=== PATIENT | male | born 1995 | race Caucasian/White ===

== ENCOUNTER 2017-09-01 02:05 | Emergency (ER) | payer SELFPAY ==
[2017-09-01 02:10] VITALS: BP 123/78
[2017-09-01] MEDS: Sodium Chloride 0.9% 10 ML Syringe FLUSH PRN (02:21)
--- NOTE | 2017-09-01 02:22 | EDM.PDOC ---
ED HPI GENERAL MEDICAL PROBLEM - General Chief Complaint: Headache Stated Complaint: headache Time Seen by Provider: 09/01/17 02:11 Source of Information: Reports: Patient, Family, RN, RN Notes Reviewed History Limitations: Reports: No Limitations - History of Present Illness INITIAL COMMENTS - FREE TEXT/NARRATIVE: Patient presents to the ED at [facility] for a headache. Patient states the headache woke him up in his sleep. He states when he gets headache he usually take Tylenol or Advil, which seems to help. He complains of photophobia. He is not aware of any triggers. He did to 3, 325 mg Tylenol tonight without any relief of his symptoms. He states he is nauseated and did vomit once prior to presentation. He denies any other neurological deficits. No other symptoms. Onset: Sudden Onset Date: 08/31/17 Duration: Waxing/Waning Location: Reports: Head Quality: Reports: Throbbing Severity: Moderate Improves with: Reports: None Worsens with: Reports: Movement Context: Denies: Activity, Lifting, Sick Contact, Trauma Associated Symptoms: Reports: Nausea/Vomiting Treatments [employer]: Reports: Acetaminophen Headache Pain Score (Numeric/FACES): 9 - Related Data Allergies Allergy/AdvReac Type Severity Reaction Status Date / Time No Known Allergies Allergy Verified 09/01/17 02:06 Home Meds: Home Meds . [No Known Home Meds] 09/01/17 [History] Past Medical History - Past Health History Medical/Surgical History: Denies Medical/Surgical History Musculoskeletal History: Reports: Back Pain, Chronic Neurological History: Reports: Migraines - Past Surgical History Musculoskeletal Surgical History: Reports: Other (See Below) Other Musculoskeletal Surgeries/Procedures:: back surgery Social & Family History - Family History Family Medical History: Noncontributory - Tobacco Use Smoking Status *Q: Current Every Day Smoker Years of Tobacco use: 5 Packs/Tins Daily: 0.5 ED ROS GENERAL - Review of Systems Review Of Systems: See Below Constitutional: Denies: Fever, Chills, Weakness HEENT: Reports: No Symptoms Respiratory: Denies: Shortness of Breath, Cough Cardiovascular: Denies: Chest Pain, Palpitations GI/Abdominal: Reports: Nausea, Vomiting. Denies: Abdominal Pain Skin: Reports: No Symptoms Neurological: Reports: Headache. Denies: Dizziness - Physical Exam Exam: See Below Exam Limited By: No Limitations General Appearance: Alert, No Apparent Distress Eye Exam: Bilateral Eye: EOMI, Normal Inspection, PERRL Ears: Normal External Exam, Normal Canal, Normal TMs Head Exam: Atraumatic, Normocephalic Neck: Supple Respiratory/Chest: No Respiratory Distress, Lungs Clear, Normal Breath Sounds Cardiovascular: Normal Peripheral Pulses, Regular Rate, Rhythm GI/Abdominal: Normal Bowel Sounds, Soft, Non-Tender Neuro Exam (Abbreviated): Alert, Oriented Skin Exam: Warm, Dry, Intact, Normal Color, No Rash Course - Vital Signs Last Recorded V/S: Last Vital Signs Temp 36.0 C 09/01/17 02:07 Pulse 71 09/01/17 02:07 Resp 14 09/01/17 02:07 BP 123/78 09/01/17 02:07 Pulse Ox 99 09/01/17 02:07 - Orders/Labs/Meds Orders: Active Orders 24 hr Category Date Time Status Sodium Chloride 0.9% [Normal Saline] 1,000 ml Med 09/01/17 02:15 Active IV ONETIME Sodium Chloride 0.9% [Saline Flush] Med 09/01/17 02:15 Active 10 ml FLUSH ASDIRECTED PRN chlorproMAZINE [Thorazine] 50 mg Med 09/01/17 02:17 Active Sodium Chloride 0.9% [Normal Saline] 50 ml IV ONETIME Peripheral IV Insertion Adult [OM.PC] Routine Oth 09/01/17 02:15 Ordered Medication Orders Sodium Chloride (Normal Saline) 1,000 mls @ 999 mls/hr IV ONETIME ONE Stop: 09/01/17 03:15 Chlorpromazine HCl 50 mg/ (Sodium Chloride) 52 mls @ 50 mls/hr IV ONETIME ONE Stop: 09/01/17 03:19 Sodium Chloride (Saline Flush) 10 ml FLUSH ASDIRECTED PRN PRN Reason: Keep Vein Open Last Admin: 09/01/17 02:21 Dose: 10 ml Meds: Medications Generic Name Dose Route Start Last Admin Trade Name Freq PRN Reason Stop Dose Admin Sodium Chloride 1,000 mls @ 999 mls/hr 09/01/17 02:15 Normal Saline IV 09/01/17 03:15 ONETIME ONE Chlorpromazine HCl 50 mg/ 52 mls @ 50 mls/hr 09/01/17 02:17 Sodium Chloride IV 09/01/17 03:19 ONETIME ONE Sodium Chloride 10 ml 09/01/17 02:15 09/01/17 02:21 Saline Flush FLUSH 10 ml ASDIRECTED PRN Administration Keep Vein Open Discontinued Medications Generic Name Dose Route Start Last Admin Trade Name Samsonq PRN Reason Stop Dose Admin Diphenhydramine HCl 50 mg 09/01/17 02:16 Benadryl IVPUSH 09/01/17 02:17 ONETIME ONE Ondansetron HCl 4 mg 09/01/17 02:15 Zofran IVPUSH 09/01/17 02:16 ONETIME ONE Departure - Departure Time of Disposition: 02:25 Disposition: Home, Self-Care 01 Condition: Good Clinical Impression: Headache Qualifiers: Headache type: unspecified Headache chronicity pattern: acute headache Intractability: not intractable Qualified Code(s): R51 - Headache - Discharge Information *PRESCRIPTION DRUG MONITORING PROGRAM REVIEWED*: No *COPY OF PRESCRIPTION DRUG MONITORING REPORT IN PATIENT SUPRIYA: No Instructions: General Headache Without Cause, [id number] Referrals: Gisella Sood MD [Physician] - Forms: ED Department Discharge Additional Instructions: 1. Stay well hydrated and rest 2. May alternate Tylenol/Advil as needed 3. See Dr. Sood as symptoms warrant 4. Call us with any questions or concerns - Problem List Review Problem List Initiated/Reviewed/Updated: Yes - My Orders Last 24 Hours: My Active Orders 09/01/17 02:15 Sodium Chloride 0.9% [Normal Saline] 1,000 ml IV ONETIME Sodium Chloride 0.9% [Saline Flush] 10 ml FLUSH ASDIRECTED PRN Peripheral IV Insertion Adult [OM.PC] Routine 09/01/17 02:17 chlorproMAZINE [Thorazine] 50 mg Sodium Chloride 0.9% [Normal Saline] 50 ml IV ONETIME - Assessment/Plan Last 24 Hours: My Active Orders 09/01/17 02:15 Sodium Chloride 0.9% [Normal Saline] 1,000 ml IV ONETIME Sodium Chloride 0.9% [Saline Flush] 10 ml FLUSH ASDIRECTED PRN Peripheral IV Insertion Adult [OM.PC] Routine 09/01/17 02:17 chlorproMAZINE [Thorazine] 50 mg Sodium Chloride 0.9% [Normal Saline] 50 ml IV ONETIME Assessment:: Headache Plan: Patient given Thorazine, Benadryl, and Zofran with complete relief of headache. Discharge home with parent. Recommend follow up with PCP as symptoms warrant
[2017-09-01] MEDS: Sodium Chloride 0.9% 1,000 ML IV ONE (02:29)
[2017-09-01] MEDS: Ondansetron 4 MG/2 ML SDV IVPUSH ONE (02:31)
[2017-09-01] MEDS: diphenhydrAMINE 50 MG/ML SDV IVPUSH ONE (02:31)
== END 2017-09-01 02:52 | disposition home or self-care (01) ==
LOC: VM.ED 02:05
DX: R51 Headache (principal); F17.210 Nicotine dependence, cigarettes, uncomplicated
CPT/HCPCS: 96365; 96375; 99283; J1200; J2405; J3230; J7030; J7050

== ENCOUNTER 2017-09-13 19:54 | Emergency (ER) | payer SELFPAY ==
--- NOTE | 2017-09-13 20:04 | EDM.PDOC ---
ED HPI GENERAL MEDICAL PROBLEM - General Chief Complaint: Upper Extremity Injury/Pain Stated Complaint: Crush injury left hand Time Seen by Provider: 09/13/17 19:57 Source of Information: Reports: Patient, RN, RN Notes Reviewed History Limitations: Reports: No Limitations - History of Present Illness INITIAL COMMENTS - FREE TEXT/NARRATIVE: Patient presents to the ED at [facility] after he sustained a crush injury to the left hand. This is not a work related injury. Patient states he was using a hammer to bust apart an axle on a vehicle, when the hammer sprung back, crushing his hand into another part of the vehicle. Patient complains of pain around the 3rd digit. He states he is unable to move his fingers. He denies any numbness, tingling, or paresthsia to the left upper extremity. No previous injury or trauma to the left hand. No previous left hand surgeries. He denies any other complaints or injuries. Onset: Today Onset Date: 09/13/17 Left Hand Pain Score (Numeric/FACES): 8 - Related Data Allergies Allergy/AdvReac Type Severity Reaction Status Date / Time No Known Allergies Allergy Verified 09/13/17 20:06 Home Meds: Home Meds . [No Known Home Meds] 09/01/17 [History] Past Medical History - Past Health History Medical/Surgical History: Denies Medical/Surgical History Musculoskeletal History: Reports: Back Pain, Chronic Neurological History: Reports: Migraines - Past Surgical History Musculoskeletal Surgical History: Reports: Other (See Below) Other Musculoskeletal Surgeries/Procedures:: back surgery Social & Family History - Family History Family Medical History: Noncontributory Review of Systems - Review of Systems Review Of Systems: See Below Constitutional: Denies: Chills, Fever, Weakness Respiratory: Denies: Shortness of Breath, Cough Cardiovascular: Denies: Chest Pain, Palpitations Musculoskeletal: Reports: Hand Pain, Joint Pain Skin: Reports: Wound (abrasion to the proximal joint) Neurological: Reports: No Symptoms ED EXAM, GENERAL - Physical Exam Exam: See Below Exam Limited By: No Limitations General Appearance: Alert, No Apparent Distress Respiratory/Chest: No Respiratory Distress, Lungs Clear, Normal Breath Sounds Cardiovascular: Normal Peripheral Pulses, Regular Rate, Rhythm Peripheral Pulses: 2+: Radial (L), Radial (R) Extremities: Normal Capillary Refill, Limited Range of Motion (left hand due to pain) Neurological: Alert, Oriented Skin Exam: Warm, Dry, Normal Color, Wound/Incision (abrasion to proximal joint 3rd digit left hand) Course - Vital Signs Last Recorded V/S: Last Vital Signs Temp 35.9 C 09/13/17 20:06 Pulse 90 09/13/17 20:06 Resp 16 09/13/17 20:06 BP 140/72 09/13/17 20:06 Pulse Ox 98 09/13/17 20:06 - Orders/Labs/Meds Orders: Active Orders 24 hr Category Date Time Status Vaccines to be Administered [RC] PER UNIT ROUTINE Care 09/13/17 21:00 Ordered Hand Comp Min 3V Lt [CR] Stat Exams 09/13/17 19:57 Taken Diphth,Pertuss(Acell),Tet Vac [Adacel] Med 09/13/17 21:00 Once 0.5 ml IM .ONCE ONE - Radiology Interpretation Free Text/Narrative:: Hand, Left 3V: No fracture or dislocation seen on plain film See scanned report in EMR Departure - Departure Time of Disposition: 20:58 Disposition: Home, Self-Care 01 Condition: Good Clinical Impression: Hand injury Qualifiers: Encounter type: initial encounter Laterality: left Qualified Code(s): S69.92XA - Unspecified injury of left wrist, hand and finger(s), initial encounter Hand abrasion Qualifiers: Encounter type: initial encounter Laterality: left Qualified Code(s): S60.512A - Abrasion of left hand, initial encounter - Discharge Information *PRESCRIPTION DRUG MONITORING PROGRAM REVIEWED*: Not Applicable *COPY OF PRESCRIPTION DRUG MONITORING REPORT IN PATIENT SUPRIYA: Not Applicable Instructions: Crush Injury of the Hand, [id number], Abrasion, [id number] Referrals: Gisella Sood MD [Primary Care Provider] - Forms: ED Department Discharge Additional Instructions: 1. Stay well hydrated and rest 2. Keep open areas on left hand clean and dry so they dont get infected 3. Rest, elevate, and ice left hand several times a day as able 4. No work restrictions needed 5. See your Primary as symptoms warrant 6. Call us with any questions or concerns - Problem List Review Problem List Initiated/Reviewed/Updated: Yes - My Orders Last 24 Hours: My Active Orders 09/13/17 19:57 Hand Comp Min 3V Lt [CR] Stat 09/13/17 21:00 Vaccines to be Administered [RC] PER UNIT ROUTINE Diphth,Pertuss(Acell),Tet Vac [Adacel] 0.5 ml IM .ONCE ONE - Assessment/Plan Last 24 Hours: My Active Orders 09/13/17 19:57 Hand Comp Min 3V Lt [CR] Stat 09/13/17 21:00 Vaccines to be Administered [RC] PER UNIT ROUTINE Diphth,Pertuss(Acell),Tet Vac [Adacel] 0.5 ml IM .ONCE ONE Assessment:: Blunt injury to left hand Hand abrasion Plan: No evidence of fracture or dislocation on plain film. No intervention warranted. Will have patient RICE the affected area. Take Advil/Tylenol as needed. May work without restriction as he is able.
[2017-09-13 20:12] VITALS: BP 140/72
[2017-09-13] MEDS ORDERED: Diphtheria,Pertussis(Acell),Tetanus Vaccine 0.5 ML Syringe IM ONE (21:00)
== END 2017-09-13 21:05 | disposition home or self-care (01) ==
LOC: VM.ED 19:54
DX: S60.413A Abrasion of left middle finger, initial encounter (principal); Z23 Encounter for immunization; W27.8XXA Contact with other nonpowered hand tool, initial encounter
CPT/HCPCS: 73130-LT; 90471; 90715; 99283; 99283-GF

== ENCOUNTER 2018-05-02 17:35 | Emergency (ER) | payer OTHER ==
--- NOTE | 2018-05-02 18:34 | EDM.PDOC ---
ED HPI GENERAL MEDICAL PROBLEM - General Chief Complaint: Head Injury Stated Complaint: HEAVY OBJECT FELL ON HIS HEAD AT WORK Time Seen by Provider: 05/02/18 17:36 Source of Information: Reports: Patient History Limitations: Reports: No Limitations - History of Present Illness INITIAL COMMENTS - FREE TEXT/NARRATIVE: 23 year old male presents to emergency department with c/o of acute head injury. Patient states he was working on the rear axle of car, when it fell on him landing on the top of his head. Denies loss of consciousness, nausea, or vomiting. Patient is oriented x3. Denies vision changes, flash of lights, floaters,or blurriness. PERRLA. Patient rates pain as throbbing on 8 out 10. Patient states this is a work related injury. Patient stated he has a history of back surgery. Denies other surgeries. Onset: Today Onset Date: 05/02/18 Onset Time: 05:40 Duration: Constant Location: Reports: Head (top of left parietal ) Quality: Reports: Throbbing Improves with: Reports: Cold Therapy, Rest Worsens with: Reports: Other (when pressure is applied to area), Movement Context: Reports: Trauma Associated Symptoms: Reports: No Other Symptoms. Denies: Confusion, Chest Pain , Nausea/Vomiting, Shortness of Breath Left Parietal Head Pain Score (Numeric/FACES): 8 - Related Data Allergies Allergy/AdvReac Type Severity Reaction Status Date / Time No Known Allergies Allergy Verified 05/02/18 18:27 Home Meds: Home Meds . [No Known Home Meds] 09/01/17 [History] Past Medical History - Past Health History Medical/Surgical History: Denies Medical/Surgical History Musculoskeletal History: Reports: Back Pain, Chronic Neurological History: Reports: Migraines - Past Surgical History Musculoskeletal Surgical History: Reports: Other (See Below) Other Musculoskeletal Surgeries/Procedures:: back surgery Social & Family History - Family History Family Medical History: Noncontributory ED ROS GENERAL - Review of Systems Review Of Systems: See Below Constitutional: Reports: No Symptoms HEENT: Reports: Other (hematoma to left scalp) Respiratory: Reports: No Symptoms Cardiovascular: Denies: Chest Pain, Dyspnea on Exertion, Lightheadedness Musculoskeletal: Reports: Other (left paritial head pain) Skin: Reports: No Symptoms Neurological: Denies: Confusion, Dizziness, Difficulty Walking, Change in Speech , Gait Disturbance Psychiatric: Reports: No Symptoms Immunologic: Reports: No Symptoms ED EXAM, HEAD INJURY - Physical Exam Exam: See Below Exam Limited By: No Limitations General Appearance: Alert, WD/WN, No Apparent Distress Head: Normocephalic, Scalp Swelling, Scalp Hematoma, Scalp Tenderness Eyes: Bilateral Eye: PERRL, Vision Changes Neck: Full Range of Motion, Normal Alignment, Normal Inspection Respiratory: No Respiratory Distress, Lungs Clear, Normal Breath Sounds, No Accessory Muscle Use, Chest Non-Tender Cardiovascular: Normal Peripheral Pulses, Regular Rate, Rhythm, No Edema, No Gallop, No JVD, No Murmur, No Rub Neurologic: Oriented x 3 Skin: Normal Color, Warm/Dry Course - Vital Signs Last Recorded V/S: Last Vital Signs Temp 37.4 C 05/02/18 17:55 Pulse 74 05/02/18 17:55 Resp 16 05/02/18 17:55 BP 124/82 05/02/18 17:55 Pulse Ox 98 05/02/18 17:55 - Orders/Labs/Meds Orders: Active Orders 24 hr Category Date Time Status Cervical Spine wo Cont [CT] Stat Exams 05/02/18 18:12 Taken Thoracic Spine wo Cont [CT] Stat Exams 05/02/18 18:12 Taken - Radiology Interpretation Free Text/Narrative:: CT Head: Negative examination of the brain CT C-Spine: No fracture or subluxation, or dislocation CT T-Spine: Old T12 fracture, unchanged, no new findings See scanned reports in EMR for details CT Results Date: 05/02/18 CT Results Time: 19:35 Departure - Departure Time of Disposition: 19:53 Disposition: Home, Self-Care 01 Condition: Good Clinical Impression: Encounter related to worker's compensation claim Closed head injury without loss of consciousness Qualifiers: Encounter type: initial encounter Qualified Code(s): S09.90XA - Unspecified injury of head, initial encounter Scalp hematoma Qualifiers: Encounter type: initial encounter Qualified Code(s): S00.03XA - Contusion of scalp, initial encounter - Discharge Information *PRESCRIPTION DRUG MONITORING PROGRAM REVIEWED*: Not Applicable *COPY OF PRESCRIPTION DRUG MONITORING REPORT IN PATIENT SUPRIYA: Not Applicable Instructions: Head Injury, Adult, [id number] Referrals: Gisella Sood MD [Primary Care Provider] - Forms: ED Department Discharge Additional Instructions: 1. Stay well hydrated and rest 2. Take Advil Tylenol as needed 3. May use a heating pad to neck/head as needed 4. See PCP as symptoms warrant - Problem List Review Problem List Initiated/Reviewed/Updated: Yes - My Orders Last 24 Hours: My Active Orders 05/02/18 18:12 Cervical Spine wo Cont [CT] Stat Thoracic Spine wo Cont [CT] Stat - Assessment/Plan Last 24 Hours: My Active Orders 05/02/18 18:12 Cervical Spine wo Cont [CT] Stat Thoracic Spine wo Cont [CT] Stat Assessment:: CHI w/o LOC Scalp hematoma Workers Comp encounter Plan: CT scans discussed with patient. No acute pathology found. Recommend taking Advil or Tylenol. See PCP as symptoms warrant
--- NOTE | 2018-05-02 19:39 | CT ---
[id number] CT/CT Head WO IV EXAM: CT Head WO IV CLINICAL DATA: BLUNT HEAD INJURY/BACK PAIN. COMPARISON STUDY: January 2017. FINDINGS: No intracranial hemorrhage, extra-axial fluid collection, mass, or acute ischemia. No hydrocephalus. Calvarium is intact. IMPRESSION: Negative examination of the brain. Praful Hernandez MD 05/02/18 [id number] Thank you for allowing us to participate in the care of your patient.
--- NOTE | 2018-05-02 19:50 | CT ---
[id number] CT/CT Thoracic Spine WO IV; [id number] CT/CT Cervical Spine WO IV Exam: CT Thoracic Spine WO IV, CT Cervical Spine WO IV Indication:BLUNT HEAD INJURY/BACK PAIN Comparison: CT from February 2018. Discussion: Cervical spine: Negative for acute fracture or compression deformity. Straightening of the normal cervical lordosis, with mild spondylosis. Prevertebral soft tissues are normal thickness. Soft tissues of the neck are unremarkable. Thoracic spine: Stable appearance of a chronic T12 compression fracture, unchanged from CT in February 2018. Fusion hardware at T11-L1 is unchanged from the prior examination. No evidence of an acute fracture or compression deformity in the thoracic or superior lumbar spine. Mild thoracic spine levo convexity with mild changes of spondylosis. Vertebral bodies appear slightly demineralized. Lungs demonstrate apical predominant paraseptal emphysematous changes with mild scarring. 5 mm subpleural nodule abutting the major fissure on the right (series 3 image 144). Impression: No acute findings in the cervical or thoracic spine. Other findings are described above. Praful Hernandez MD 05/02/18 [id number] Thank you for allowing us to participate in the care of your patient.
[2018-05-02 21:43] VITALS: BP 114/73
== END 2018-05-02 20:00 | disposition home or self-care (01) ==
LOC: VM.ED 17:35
DX: S00.03XA Contusion of scalp, initial encounter (principal); W20.8XXA Other cause of strike by thrown, projected or falling object, initial encounter; Y99.0 Civilian activity done for income or pay
CPT/HCPCS: 70450; 72125; 72128; 99283-25

== ENCOUNTER 2020-02-22 08:04 | Emergency (ER) | payer MEDICAID ==
[2020-02-22] MEDS ORDERED: Ketorolac 30 MG/ML SDV IM ONE (08:23)
[2020-02-22] MEDS ORDERED: Ondansetron 4 MG Tab.DIS PO ONE (08:23)
[2020-02-22] MEDS ORDERED: diphenhydrAMINE 50 MG/ML SDV IM ONE (08:23)
--- NOTE | 2020-02-22 08:37 | EDM.PDOC ---
ED HPI GENERAL MEDICAL PROBLEM - General Chief Complaint: Headache Stated Complaint: MIGRAINE Time Seen by Provider: 02/22/20 08:22 Source of Information: Reports: Patient History Limitations: Reports: No Limitations - History of Present Illness INITIAL COMMENTS - FREE TEXT/NARRATIVE: Pt. presents to ER with complaints of migraine headache. Pt. states that the headache started this AM and woke him from sleep. He states that he has a longstanding history of migraine, and states that this is similar to past attacks. Complains of nausea, vomiting, photophobia, phonophobia. Denies any recent head trauma. No numbness/tingling. Denies any acute vision loss or change. Pt. denies any chest pain. No shortness of breath. Onset: Today Location: Reports: Head Quality: Reports: Throbbing Right Head Pain Score (Numeric/FACES): 9 - Related Data Allergies Allergy/AdvReac Type Severity Reaction Status Date / Time No Known Allergies Allergy Verified 02/22/20 08:17 Home Meds: Home Meds . [No Known Home Meds] 09/01/17 [History] Past Medical History - Past Health History Medical/Surgical History: Denies Medical/Surgical History Musculoskeletal History: Reports: Back Pain, Chronic Neurological History: Reports: Migraines - Past Surgical History Musculoskeletal Surgical History: Reports: Other (See Below) Other Musculoskeletal Surgeries/Procedures:: back surgery Social & Family History - Family History Family Medical History: No Pertinent Family History - Recreational Drug Use Recreational Drug Use: Yes Recreational Drug Type: Reports: Marijuana/Hashish Recreational Drug Use Frequency: Daily ED ROS GENERAL - Review of Systems Review Of Systems: See Below Constitutional: Reports: No Symptoms HEENT: Reports: No Symptoms. Denies: Ear Discharge, Eye Discharge, Eye Pain, Hearing Loss, Nosebleed, Nose Pain, Rhinitis, Sinus Problem, Throat Pain, Throat Swelling, Vertigo, Vision Change Respiratory: Reports: No Symptoms Cardiovascular: Reports: No Symptoms Endocrine: Reports: No Symptoms GI/Abdominal: Reports: No Symptoms : Reports: No Symptoms Musculoskeletal: Reports: No Symptoms Skin: Reports: No Symptoms Neurological: Reports: Headache. Denies: Confusion, Dizziness, Numbness, Paresthesia, Pre-Existing Deficit, Seizure, Syncope, Tingling, Tremors, Trouble Speaking, Difficulty Walking, Weakness, Change in Speech, Gait Disturbance Psychiatric: Reports: No Symptoms Hematologic/Lymphatic: Reports: No Symptoms Immunologic: Reports: No Symptoms ED EXAM, GENERAL - Physical Exam Exam: See Below Exam Limited By: No Limitations General Appearance: Alert, WD/WN, No Apparent Distress Neurological: Alert, Oriented, CN II-XII Intact, Normal Cognition, Normal Gait, Normal Reflexes, No Motor/Sensory Deficits Psychiatric: Normal Affect, Normal Mood Course - Vital Signs Last Recorded V/S: Last Vital Signs Temp 36.2 C 02/22/20 08:13 Pulse 77 02/22/20 08:13 Resp 16 02/22/20 08:13 BP 127/87 02/22/20 08:13 Pulse Ox 99 02/22/20 08:13 - Orders/Labs/Meds Meds: Medications Discontinued Medications Generic Name Dose Route Start Last Admin Trade Name Latonia PRN Reason Stop Dose Admin Chlorpromazine HCl 50 mg 02/22/20 08:22 02/22/20 08:30 Thorazine IM 02/22/20 08:23 50 mg ONETIME ONE Administration Diphenhydramine HCl 50 mg 02/22/20 08:23 02/22/20 08:36 Benadryl IM 02/22/20 08:24 50 mg ONETIME ONE Administration Ketorolac Tromethamine 30 mg 02/22/20 08:23 02/22/20 08:33 Toradol IM 02/22/20 08:24 30 mg ONETIME ONE Administration Ondansetron HCl 4 mg 02/22/20 08:23 02/22/20 08:30 Zofran Odt PO 02/22/20 08:24 4 mg ONETIME ONE Administration - Re-Assessments/Exams Free Text/Narrative Re-Assessment/Exam: 02/22/20 08:51 States feels much improved after injections. Departure - Departure Time of Disposition: 08:50 Disposition: Home, Self-Care 01 Clinical Impression: Migraine - Discharge Information Instructions: Migraine Headache Referrals: Gisella Sood MD [Primary Care Provider] - Forms: ED Department Discharge Additional Instructions: Home to rest. Drink plenty of fluids. Tylenol and ibuprofen as needed for continued discomfort. Off work today if needed. Sepsis Event Note (ED) - Evaluation Sepsis Screening Result: No Definite Risk - Focused Exam Vital Signs: Vital Signs Temp Pulse Resp BP Pulse Ox 02/22/20 08:13 36.2 C 77 16 127/87 99 - Problem List Review Problem List Initiated/Reviewed/Updated: Yes - Assessment/Plan Plan: Follow-up in clinic in 10-14 days, sooner if not gradually improving. Return to ER if symptoms worsen. Off work today. Return to ER if confusion, neuro symptoms, or unable to hold down fluids.
[2020-02-22 09:12] VITALS: BP 129/72; PULSE 80
== END 2020-02-22 09:00 | disposition home or self-care (01) ==
LOC: VM.ED 08:04
DX: G43.909 Migraine, unspecified, not intractable, without status migrainosus (principal)
CPT/HCPCS: 96372; 99283; A9270-GY; J1200; J1885; J3230

== ENCOUNTER 2020-02-27 12:10 | Emergency (ER) | payer MEDICAID ==
[2020-02-27] MEDS ORDERED: Metoclopramide 10 MG/2 ML SDV IVPUSH ONE (12:28)
[2020-02-27] MEDS ORDERED: Lactated Ringers 1,000 ML IV ONE (12:28)
[2020-02-27] MEDS ORDERED: diphenhydrAMINE 50 MG/ML SDV IVPUSH ONE (12:28)
[2020-02-27] MEDS ORDERED: Ketorolac 30 MG/ML SDV IVPUSH ONE (12:28)
[2020-02-27] MEDS ORDERED: Sodium Chloride 0.9% 10 ML Syringe FLUSH PRN (12:28)
[2020-02-27] MEDS ORDERED: Dexamethasone 4 MG/ML SDV IVPUSH ONE (12:30)
--- NOTE | 2020-02-27 12:36 | EDM.PDOC ---
ED HPI GENERAL MEDICAL PROBLEM - General Stated Complaint: MIGRAIN Time Seen by Provider: 02/27/20 12:30 Source of Information: Reports: Patient History Limitations: Reports: No Limitations - History of Present Illness INITIAL COMMENTS - FREE TEXT/NARRATIVE: Patient comes emergency department today from home with complaints of a migraine headache. This patient has a longstanding history of migraine headaches for he gets about 1-2 every other month. And in the emergency department on 02-22-20 with the worst migraine he is ever had. He received IM medications at that time with great improvement and he has been headache free this morning when he woke up with a headache. This is not the worst headache he is ever had. He has pounding throughout the tentorium. Photophobia and phonophobia. Nausea without vomiting. No fever no chills. No visual acuity changes. No paresthesias of his upper or lower extremities. No change in the functionality of his upper or lower extremities. No recent falls head trauma. No fever no chills. Denies any confusion or change in his thought process. No weakness dizziness lightheadedness. He is able to ambulate without difficulty. No chest pain no shortness of breath or difficulty breathing. No fever no chills. No cough or congestion. No abdominal pain. Nausea without vomiting. No hematuria dysuria or urinary frequency. No black or tarry stools. No Covid exposure no Covid symptoms. - Related Data Allergies Allergy/AdvReac Type Severity Reaction Status Date / Time No Known Allergies Allergy Verified 02/22/20 08:17 Home Meds: Home Meds . [No Known Home Meds] 09/01/17 [History] Past Medical History - Past Health History Medical/Surgical History: Denies Medical/Surgical History Musculoskeletal History: Reports: Back Pain, Chronic Neurological History: Reports: Migraines - Past Surgical History Musculoskeletal Surgical History: Reports: Other (See Below) Other Musculoskeletal Surgeries/Procedures:: back surgery Social & Family History - Family History Family Medical History: No Pertinent Family History ED ROS GENERAL - Review of Systems Review Of Systems: Comprehensive ROS is negative, except as noted in HPI. - Physical Exam Exam: See Below Text/Narrative:: Patient appears in no acute distress. He is resting comfortably on the cot with the lights turned down to the room. Exam Limited By: No Limitations General Appearance: Alert, WD/WN, No Apparent Distress Eye Exam: Bilateral Eye: EOMI, PERRL (5) Ears: Normal External Exam, Normal Canal (There is a moderate amount of cerumen in the right canal but the tympanic membrane that is realized is unremarkable. The left canal is clear with normal TM.), Hearing Grossly Normal Nose: Normal Inspection, Normal Mucosa Throat/Mouth: Normal Inspection, Normal Lips, Normal Teeth, Normal Oropharynx, Normal Voice, No Airway Compromise Head Exam: Atraumatic, Normocephalic Neck: Normal Inspection, Supple, Non-Tender Respiratory/Chest: No Respiratory Distress, Lungs Clear, Normal Breath Sounds, Chest Non-Tender Cardiovascular: Normal Peripheral Pulses, Regular Rate, Rhythm GI/Abdominal: Normal Bowel Sounds, Soft, Non-Tender (Male) Exam: Deferred Rectal (Males) Exam: Deferred Neuro Exam (Abbreviated): Alert, Oriented, CN II-XII Intact, Normal Cognition, No Motor/Sensory Deficits Back Exam: Normal Inspection Extremities: Normal Inspection, Normal Range of Motion, No Pedal Edema, Normal Capillary Refill Psychiatric: Normal Affect, Normal Mood Skin Exam: Warm, Dry, Intact, Normal Color, No Rash Course - Orders/Labs/Meds Orders: Active Orders 24 hr Category Date Time Status Lactated Ringers [Ringers, Lactated] 1,000 ml Med 02/27/20 12:28 Active IV ONETIME Sodium Chloride 0.9% [Saline Flush] Med 02/27/20 12:28 Active 10 ml FLUSH ASDIRECTED PRN Peripheral IV Insertion Adult [OM.PC] Stat Oth 02/27/20 12:28 Ordered Medication Orders Lactated Ringer's (Ringers, Lactated) 1,000 mls @ 999 mls/hr IV ONETIME ONE Stop: 02/27/20 13:28 Last Admin: 02/27/20 12:41 Dose: 999 mls/hr Documented by: MIKKI Sodium Chloride (Saline Flush) 10 ml FLUSH ASDIRECTED PRN PRN Reason: Keep Vein Open Meds: Medications Generic Name Dose Route Start Last Admin Trade Name Freq PRN Reason Stop Dose Admin Lactated Ringer's 1,000 mls @ 999 mls/hr 02/27/20 12:28 02/27/20 12:41 Ringers, Lactated IV 02/27/20 13:28 999 mls/hr ONETIME ONE Administration Sodium Chloride 10 ml 02/27/20 12:28 Saline Flush FLUSH ASDIRECTED PRN Keep Vein Open Discontinued Medications Generic Name Dose Route Start Last Admin Trade Name Latonia PRN Reason Stop Dose Admin Dexamethasone 10 mg 02/27/20 12:30 02/27/20 12:41 Decadron IVPUSH 02/27/20 12:31 10 mg ONETIME ONE Administration Diphenhydramine HCl 50 mg 02/27/20 12:28 02/27/20 12:41 Benadryl IVPUSH 02/27/20 12:29 50 mg ONETIME ONE Administration Ketorolac Tromethamine 30 mg 02/27/20 12:28 02/27/20 12:41 Toradol IVPUSH 02/27/20 12:29 30 mg ONETIME ONE Administration Lorazepam 1 mg 02/27/20 13:00 02/27/20 13:06 Ativan IVPUSH 02/27/20 13:01 1 mg STAT ONE Administration Metoclopramide HCl 10 mg 02/27/20 12:28 02/27/20 12:41 Reglan IVPUSH 02/27/20 12:29 10 mg ONETIME ONE Administration - Re-Assessments/Exams Free Text/Narrative Re-Assessment/Exam: 02/27/20 12:39 IV was established. 1 L LR wide open. Benadryl grams IV push. Ketorolac 30 mg IV push. Reglan 10 mg IV push. Dexamethasone 10 mg IV push for the prevention of recurrent migraine in the next couple of days. 02/27/20 13:05 Patient had complete resolution of his headache although he did have some anxiety and some dystonic type reaction. Most likely due to the Reglan. He was given lorazepam IV push with resolution of his symptoms. 02/27/20 13:20 The patient had complete resolution of his dystonia following the above therapy. His headache and migraine is completely gone. He is completely asymptomatic. His neurological status is unchanged. Discharge him home at this time with rest fluids. He is going to see his primary care this week that he is already planned to do for some prophylactic management of his migraines. I think that amitriptyline would be a great choice to begin his prophylaxis with as he typically wakes up with a migraine in the morning. Although this will be left to his primary care provider. He is comfortable with this plan and his questions answered. Departure - Departure Time of Disposition: 13:16 Disposition: Home, Self-Care 01 Clinical Impression: Migraine - Discharge Information Instructions: Recurrent Migraine Headache, [id number], Migraine Headache, [id number] Additional Instructions: Home rest as much as possible. Try to decrease stimulation to the brain especially lights sounds. No backlit devices in a dark room like a cellphone or tablet. Lots of fluids. See your PCP this week as you have already planned. Return to the ED if new or worsening symptoms. - My Orders Last 24 Hours: My Active Orders 02/27/20 12:28 Lactated Ringers [Ringers, Lactated] 1,000 ml IV ONETIME Sodium Chloride 0.9% [Saline Flush] 10 ml FLUSH ASDIRECTED PRN Peripheral IV Insertion Adult [OM.PC] Stat - Assessment/Plan Last 24 Hours: My Active Orders 02/27/20 12:28 Lactated Ringers [Ringers, Lactated] 1,000 ml IV ONETIME Sodium Chloride 0.9% [Saline Flush] 10 ml FLUSH ASDIRECTED PRN Peripheral IV Insertion Adult [OM.PC] Stat
[2020-02-27] MEDS ORDERED: LORazepam 2 MG/ML SDV IVPUSH ONE (13:00)
[2020-02-27 19:55] VITALS: BP 129/67; PULSE 58
== END 2020-02-27 13:25 | disposition home or self-care (01) ==
LOC: VM.ED 12:10
DX: G43.909 Migraine, unspecified, not intractable, without status migrainosus (principal); H61.21 Impacted cerumen, right ear
CPT/HCPCS: 96374; 96375; 99283-25; 99284; J1100; J1200; J1885; J2060; J2765; J7120

== ENCOUNTER 2020-04-16 06:45 | Emergency (ER) | payer SELFPAY ==
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
[2020-04-16] MEDS: Ketorolac 30 MG/ML SDV IM ONE (07:36)
[2020-04-16] MEDS: diphenhydrAMINE 50 MG/ML SDV IM ONE (07:37)
[2020-04-16] MEDS: Promethazine 25 MG Tab PO STA (07:38)
[2020-04-16 08:21] VITALS: BP 108/77; PULSE 75
== END 2020-04-16 08:09 | disposition home or self-care (01) ==
LOC: VM.ED 06:45
DX: R51.9 Headache, unspecified (principal)
CPT/HCPCS: 96372; 99283; A9270; J1200; J1885

== ENCOUNTER 2021-01-10 06:20 | Emergency (ER) | payer SELFPAY ==
[2021-01-10] MEDS ORDERED: Ketorolac 30 MG/ML SDV IM ONE (06:30)
[2021-01-10] MEDS ORDERED: Ondansetron 4 MG/2 ML SDV IM ONE (06:31)
[2021-01-10 06:35] VITALS: BP 123/72; PULSE 70
== END 2021-01-10 07:03 | disposition home or self-care (01) ==
LOC: VM.ED 06:20
DX: G43.909 Migraine, unspecified, not intractable, without status migrainosus (principal)
CPT/HCPCS: 96372; 99283; J1885; J2405

== ENCOUNTER 2021-05-23 12:05 | Emergency (ER) | payer SELFPAY ==
[2021-05-23] MEDS: Ketorolac 30 MG/ML SDV IM ONE (12:34)
[2021-05-23 12:55] VITALS: BP 114/54; PULSE 62
== END 2021-05-23 12:55 | disposition home or self-care (01) ==
LOC: VM.ED 12:05
DX: G43.909 Migraine, unspecified, not intractable, without status migrainosus (principal); Z72.0 Tobacco use
CPT/HCPCS: 96372; 99283; J1885

== ENCOUNTER 2021-10-11 00:50 | Emergency (ER) | payer SELFPAY ==
[2021-10-11] MEDS ORDERED: Ondansetron 4 MG/2 ML SDV IM ONE (01:02)
[2021-10-11] MEDS ORDERED: Ketorolac 30 MG/ML SDV IM ONE (01:02)
[2021-10-11 04:08] VITALS: BP 116/75; PULSE 75
== END 2021-10-11 01:17 | disposition home or self-care (01) ==
LOC: VM.ED 00:50
DX: G43.909 Migraine, unspecified, not intractable, without status migrainosus (principal); Z72.0 Tobacco use
CPT/HCPCS: 96372; 99283; J1885; J2405

== ENCOUNTER 2021-11-29 00:35 | Emergency (ER) | payer SELFPAY ==
[2021-11-29] MEDS ORDERED: Ketorolac 30 MG/ML SDV IM ONE (00:45)
[2021-11-29] MEDS ORDERED: Ondansetron 4 MG/2 ML SDV IM ONE (00:45)
[2021-11-29 00:46] VITALS: BP 131/82; PULSE 76
== END 2021-11-29 01:09 | disposition home or self-care (01) ==
LOC: VM.ED 00:35
DX: G43.909 Migraine, unspecified, not intractable, without status migrainosus (principal); Z72.0 Tobacco use
CPT/HCPCS: 96372; 99283; J1885; J2405

== ENCOUNTER 2022-04-04 05:59 | Emergency (ER) | payer SELFPAY ==
[2022-04-04] MEDS: Ketorolac 30 MG/ML SDV IM ONE (06:43)
[2022-04-04] MEDS: Ondansetron 4 MG/2 ML SDV IM ONE (06:43)
== END 2022-04-04 06:37 | disposition left against medical advice (07) ==
LOC: VM.ED 05:59
DX: G43.909 Migraine, unspecified, not intractable, without status migrainosus (principal)
CPT/HCPCS: 99283

== ENCOUNTER 2023-07-22 03:38 | Emergency (ER) | payer SELFPAY ==
[2023-07-22 03:47] VITALS: BP 124/68; PULSE 86
[2023-07-22] MEDS: Ondansetron 4 MG Tab.DIS PO ONE (03:48)
[2023-07-22] MEDS: Ketorolac 30 MG/ML SDV IM ONE (03:49)
== END 2023-07-22 04:10 | disposition home or self-care (01) ==
LOC: VM.ED 03:38
DX: G43.909 Migraine, unspecified, not intractable, without status migrainosus (principal); F17.210 Nicotine dependence, cigarettes, uncomplicated
CPT/HCPCS: 96372; 99283; A9270-GY; J1885

== ENCOUNTER 2023-08-25 17:09 | Emergency (ER) | payer SELFPAY ==
[2023-08-25 17:22] VITALS: BP 138/87; PULSE 76
[2023-08-25] MEDS: Ketorolac 30 MG/ML SDV IM ONE (17:41)
[2023-08-25] MEDS: Ondansetron 4 MG Tab.DIS PO ONE (17:42)
== END 2023-08-25 17:55 | disposition home or self-care (01) ==
LOC: VM.ED 17:09 → SUPCPDRO 17:09 → VM.ED 17:55
DX: G43.909 Migraine, unspecified, not intractable, without status migrainosus (principal); F17.210 Nicotine dependence, cigarettes, uncomplicated
CPT/HCPCS: 96372; 99283; A9270; J1885

== ENCOUNTER 2023-11-08 10:56 | Emergency (ER) | payer OTHER ==
[2023-11-08 11:18] VITALS: BP 120/85; PULSE 70
== END 2023-11-08 12:00 | disposition left against medical advice (07) ==
LOC: VM.ED 10:56
DX: Z53.21 Procedure and treatment not carried out due to patient leaving prior to being seen by health care provider (principal)

== ENCOUNTER 2024-08-17 22:03 | Emergency (ER) | payer OTHER ==
[2024-08-17 22:21] VITALS: BP 138/91; PULSE 94
[2024-08-17] MEDS: Silver Sulfadiazine 1% Crm 50 GM Tube TOP ONE (22:30)
== END 2024-08-17 22:41 | disposition home or self-care (01) ==
LOC: VM.ED 22:03
DX: T23.201A Burn of second degree of right hand, unspecified site, initial encounter (principal); F17.210 Nicotine dependence, cigarettes, uncomplicated; X08.8XXA Exposure to other specified smoke, fire and flames, initial encounter; Y93.89 Activity, other specified
CPT/HCPCS: 16020; 99282-25; 99283; A9270-GY